=== PATIENT | female | born 1945 | race African-American/Black ===

== ENCOUNTER 2019-03-09 00:21 | Emergency (ER) | payer MEDICARE, MEDICAID ==
[~2019-03-09] VITALS: Ht 170.2 cm; Wt 70.0 kg
[~2019-03-09 00:21] MED LIST: AMIT50TA3 PO; AMLO5TAB88 PO; BACL20TA PO; HYDR12.518 PO; LISI-604 PO; TRAM50TA PO
[2019-03-09] MEDS ORDERED: MORPHINE SULFATE 4 MG/ML CPJ (NOT FOR IM USE) IV ONE (02:00)
[2019-03-09] MEDS ORDERED: ONDANSETRON HCL 4MG/2ML INJ IV ONE (02:00)
[2019-03-09 05:53] VITALS: BP 140/80
== END 2019-03-09 05:54 | disposition home or self-care (01) ==
LOC: ER 00:21
DX: G89.29 Other chronic pain (principal); M54.5 Low back pain; I10 Essential (primary) hypertension; F17.200 Nicotine dependence, unspecified, uncomplicated; Z79.899 Other long term (current) drug therapy
CPT/HCPCS: 96374; 96375; 99283; J2270; J2405